=== PATIENT | female | born 1965 | race Caucasian/White ===

== ENCOUNTER 2021-12-04 17:35 | Observation (INO) ==
[2021-12-04] MEDS ORDERED: Ondansetron 4 MG/2 ML VIAL IVP PRN (20:31)
[2021-12-04] MEDS ORDERED: Naloxone 0.4 MG/ML INJ IVP PRN (20:31)
[2021-12-04] MEDS ORDERED: *HR* HYDROcodone/Acet 5/325 mg TABLET PO PRN (20:31)
[2021-12-04] MEDS ORDERED: *HR* OxyCODONE Immed Rel 5 MG TABLET PO PRN (20:31)
[2021-12-04] MEDS ORDERED: Melatonin 3 MG TABLET PO PRN (20:31)
[2021-12-04] MEDS ORDERED: *HR* Promethazine 25 MG/ML VIAL IM PRN (20:31)
[2021-12-04] MEDS ORDERED: Acetaminophen 325 MG TABLET PO PRN (20:31)
[2021-12-04] MEDS ORDERED: *HR* Heparin 5,000 UNIT/ML VIAL IVP PRN ×2 (22:08)
[2021-12-04] MEDS ORDERED: Heparin 25,000UNIT/250ML 1/2NS 25,000 UNIT/250 ML IV.SOLN IVC SCH (22:15)
[2021-12-05] MEDS ORDERED: Regadenoson 0.4 MG/5 ML SYRINGE IVP ONE ×2 (05:50→10:06)
[2021-12-05 05:57] LABS: Hematocrit 39.3 % (35.3-44.9); Hemoglobin 13.1 g/dL (11.5-15.4); Mean Corpuscular HGB Conc 33.3 g/dL (31.6-35.5); Mean Corpuscular Hemoglobin 27.6 pg (28.0-33.3); Mean Corpuscular Volume 82.7 fL (83.0-100.0); Mean Platelet Volume 9.9 fL (9.4-12.4); Platelet Count 302 K/mcL (140-400); Red Blood Count 4.75 M/mcL (3.82-4.97); Red Cell Distribution Width 13.2 % (11.5-14.5); White Blood Count 7.7 K/mcL (4.3-11.1)
[2021-12-05 06:07] LABS: INR 1.1; Prothrombin Time 11.8 Seconds (9.4-12.1)
[2021-12-05 06:08] LABS: Heparin anti-factor XA UFH 0.59 IU/mL (0.30-0.70)
[2021-12-05 06:13] LABS: Chol/HDL Ratio 5.4 (0-4.9); Cholesterol 259 mg/dL (< 200); HDL Cholesterol 48 mg/dL (40-59); LDL Cholesterol,Calculated 149 mg/dL (< 100); Magnesium 1.7 mg/dL (1.6-2.6); Phosphorous 4.5 mg/dL (2.7-4.5); Triglycerides 309 mg/dL (< 150); Troponin I < 0.03 ng/mL (< 0.04)
[2021-12-05 06:31] LABS: Thyroid Stimulating Hormone 2.648 mcIU/mL (0.340-5.600)
[2021-12-05] MEDS ORDERED: diazePAM 10 MG/2 ML SYRINGE IVP ONE (07:05)
[2021-12-05] MEDS ORDERED: *HR* Metoprolol 5 MG/5 ML VIAL IVP PRN (08:31)
[2021-12-05] MEDS: Apixaban 5 MG TABLET PO SCH ×2 (13:32→21:03)
[2021-12-05] MEDS ORDERED: clonazePAM 1 MG TABLET PO SCH (21:00)
[2021-12-06 03:11] VITALS: O2SAT 96
[2021-12-06 07:38] VITALS: BP 157/92; PULSE 76; TEMP 97.9
[2021-12-06] MEDS: Apixaban 5 MG TABLET PO SCH (08:52)
[2021-12-06] MEDS ORDERED: Losartan/HCTZ 50-12.5 TABLET PO SCH (09:00)
== END 2021-12-06 10:55 | disposition home or self-care (01) ==
LOC: 3ANU → SUATTDRO 20:06
PROVIDERS: ADMIT Internal Medicine; ATTEND Internal Medicine